=== PATIENT | male | born 1980 | race Asian ===

== ENCOUNTER 2017-08-05 20:25 | Emergency (ER) | payer MEDICAID | END 2017-08-06 06:10 | disposition home or self-care (01) | LOC: FTE 20:25 | DX: R22.41 Localized swelling, mass and lump, right lower limb (principal); J45.909 Unspecified asthma, uncomplicated; F17.210 Nicotine dependence, cigarettes, uncomplicated | CPT/HCPCS: 76536; 99284-25 ==

== ENCOUNTER 2017-08-13 22:05 | Emergency (ER) | payer MEDICAID ==
[2017-08-13] MEDS: IPRATROPIUM (NEB) 0.5 MG/2.5 ML AMP NEB (23:52)
[2017-08-13] MEDS: ALBUTEROL 0.083% (NEB) 2.5 MG/3 ML AMP NEB (23:53)
[2017-08-14] MEDS: METHYLPREDNISOLONE 125 MG INJ IM (00:27)
== END 2017-08-14 01:39 | disposition home or self-care (01) ==
LOC: FTE 08-14 01:39
DX: J20.9 Acute bronchitis, unspecified (principal); J45.901 Unspecified asthma with (acute) exacerbation; F17.210 Nicotine dependence, cigarettes, uncomplicated
CPT/HCPCS: 94664; 96372; 99284-25

== ENCOUNTER 2017-08-26 01:05 | Emergency (ER) | payer MEDICAID | END 2017-08-26 05:23 | disposition home or self-care (01) | LOC: FTE 01:05 | DX: Z76.0 Encounter for issue of repeat prescription (principal); J45.909 Unspecified asthma, uncomplicated; Z87.891 Personal history of nicotine dependence | CPT/HCPCS: 99283; Z7502 ==

== ENCOUNTER 2017-11-14 18:21 | Emergency (ER) | payer MEDICAID | END 2017-11-14 20:00 | disposition home or self-care (01) | LOC: E/R 20:00 | DX: J06.9 Acute upper respiratory infection, unspecified (principal); J45.909 Unspecified asthma, uncomplicated | CPT/HCPCS: 99283; Z7502 ==